=== PATIENT | male | born 1955 | race Caucasian/White ===

== ENCOUNTER 2021-06-08 14:39 | Emergency (ER) | payer OTHER ==
[2021-06-08 16:19] LABS: CORONAVIRUS COVID-19 NAA NEGATIVE (NEGATIVE)
[2021-06-08] MEDS ORDERED: Sodium Chloride 0.9% 10 ML Syringe FLUSH PRN ×2 (16:42)
[2021-06-08] MEDS ORDERED: Lactated Ringers 1,000 ML IV ONE (16:46)
--- NOTE | 2021-06-08 16:49 | EDM.PDOC ---
<OfficerJas - Last Filed: 06/08/21 19:24> ED HPI GENERAL MEDICAL PROBLEM - General Chief Complaint: General Stated Complaint: SOB, LIGHT HEADED Time Seen by Provider: 06/08/21 16:29 Source of Information: Reports: Patient, RN Notes Reviewed History Limitations: Reports: No Limitations - History of Present Illness INITIAL COMMENTS - FREE TEXT/NARRATIVE: 66-year-old gentleman presents to the emergency department today complaint of shortness of breath, he has a known history of COPD normally uses 2 L of oxygen all the time he is been very good about not getting exposed to Covid he is unvaccinated. States over the last couple days increasing shortness of breath increasing weakness no fevers no chest pain no nausea vomiting. He currently has bilateral skin breakdown on his lower extremities and he is taking Keflex for antibiotic Lower Back Pain Score (Numeric/FACES): 4 - Related Data Allergies Allergy/AdvReac Type Severity Reaction Status Date / Time lorazepam [From Ativan] Allergy Respiratory Verified 06/08/21 15:19 Distress prednisone Allergy Cannot Verified 06/08/21 15:19 Remember Home Meds: Home Meds Acetaminophen [Tylenol Arthritis] 1 tab PO Q8H PRN 06/08/21 [History] Albuterol Sulfate [Albuterol Sulfate Hfa] 2 puff INH Q4H PRN 06/08/21 [History] Clotrimazole [Mycelex] 1 tab PO ASDIRECTED 06/08/21 [History] Digoxin 1 tab PO DAILY 06/08/21 [History] Fluticasone/Vilanterol [Breo Ellipta 100-25 MCG Inhalation Kit] 1 puff INH DAILY 06/08/21 [History] Gabapentin [Neurontin] 300 mg PO BID 06/08/21 [History] Magnesium Oxide 400 mg PO BIDMEALS 06/08/21 [History] Metoprolol Succinate 100 mg PO DAILY 06/08/21 [History] Pantoprazole Sodium [Protonix] 40 mg PO DAILY 06/08/21 [History] Potassium Chloride 1 tab PO BIDMEALS 06/08/21 [History] Potassium Chloride 40 meq PO DAILY 06/08/21 [History] Sildenafil Citrate [Viagra] 50 mg PO ASDIRECTED 06/08/21 [History] Spironolactone 50 mg PO DAILY 06/08/21 [History] Torsemide 2 tab PO PCDINNER 06/08/21 [History] Torsemide 3 tab PO DAILY 06/08/21 [History] Zolpidem Tartrate [Ambien] 10 mg PO BEDTIME PRN 06/08/21 [History] cephALEXin [Keflex] 500 mg PO BID 06/08/21 [History] guaiFENesin [Mucinex] 600 mg PO BID PRN 06/08/21 [History] metOLazone [Metolazone] 2.5 mg PO ASDIRECTED 06/08/21 [History] traZODone 50 mg PO BEDTIME 06/08/21 [History] Past Medical History Cardiovascular History: Reports: Heart Failure, Hypertension Respiratory History: Reports: COPD Gastrointestinal History: Reports: Other (See Below) Other Gastrointestinal History: liver cirrohsis Genitourinary History: Reports: Other (See Below) Other Genitourinary History: history of acute kidney failure Psychiatric History: Reports: Dementia Dermatologic History: Reports: Cellulitis - Past Surgical History Head Surgeries/Procedures: Reports: None Cardiovascular Surgical History: Reports: None Respiratory Surgical History: Reports: None GI Surgical History: Reports: Hernia, Abdominal Male Surgical History: Reports: None Social & Family History - Tobacco Use Tobacco Use Status *Q: Current Every Day Tobacco User Years of Tobacco use: 45 Packs/Tins Daily: 0.5 - Caffeine Use Caffeine Use: Reports: Soda - Recreational Drug Use Recreational Drug Use: No ED ROS GENERAL - Review of Systems Review Of Systems: See Below Constitutional: Reports: Weakness, Fatigue. Denies: Fever HEENT: Reports: No Symptoms Respiratory: Reports: Shortness of Breath, Cough, Sputum Cardiovascular: Reports: Dyspnea on Exertion GI/Abdominal: Reports: No Symptoms : Reports: No Symptoms ED EXAM, GENERAL - Physical Exam Exam: See Below Exam Limited By: No Limitations General Appearance: Alert, Mild Distress Respiratory/Chest: Decreased Breath Sounds, Rhonchi Cardiovascular: Regular Rate, Rhythm, No Murmur GI/Abdominal: Soft, Non-Tender Course - Re-Assessments/Exams Free Text/Narrative Re-Assessment/Exam: 06/08/21 19:25 Review of this gentleman's reveals that he is severely hyperkalemic potassium 8.9 other lab work WBC 16.9 consistent leukocytosis BUN 118 creatinine 2.8 consi stent with acute renal failure stage G4 lactic acid 3.2 calcium low at 10.2 consistent with hypocalcemia troponin normal at 0.024 BNP markedly elevated 30,600 digoxin normal range 1.7 Covid is negative. He started to have some membrane instability problems fluctuation in heart rate QRS did widen with the T wave. He is brought to the trauma bay resuscitation efforts given a wide variety of medications calcium gluconate did have a significant impact he is initially placed on a nonrebreather mask however after stabilization variety other medications albuterol Kayexalate PE are as well as glucose and insulin large dose of Lasix 80 mg. He has stabilized his breathing is now maintaining his oxygenation on nasal cannula heart rate is stable at 75 however these issues are temporizing he does need dialysis. I did make contact to several facilities and was unsuccessful trying to find a bed that provides dialysis. I have informed the family of this his is present she states if if things are not looking good she does not want any heroic measures done. Departure - Departure Disposition: DC/Tfer to Acute Hospital 02 Clinical Impression: Hyperkalemia, Low left ventricular ejection fraction, Other urethral stricture, male, meatal Acute renal failure Qualifiers: Acute renal failure type: unspecified Qualified Code(s): N17.9 - Acute kidney failure, unspecified Volume overload Qualifiers: Hypervolemia type: other Qualified Code(s): E87.79 - Other fluid overload - Discharge Information Referrals: PCP,None [Primary Care Provider] - Forms: ED Department Discharge <Desmond Lira - Last Filed: 06/09/21 00:42> ED CENTRAL LINE INSERTION - Central Line Insertion Central Line Indication: dialysis Site: internal jugular (R) Prep: Sterile Drapes, Betadine Lumen: double Gauge: other (19Fr) Local Anesthesia - Lidocaine (Xylocaine): 1% with EPI Local Anesthetic Volume: 3cc Ultrasound guided: Yes Guidewire and dilator removed intact: Yes Micropuncture kit used: No Complications: No Secured with suture: Yes Post placement confirmation: CXR, all ports aspirated, all ports flushed (with heparin) CXR post-procedure: no pneumothorax, no hemothorax Dressing applied: by provider Course - Vital Signs Last Recorded V/S: Last Vital Signs Temp 36.5 C 06/08/21 15:17 Pulse 49 L 06/08/21 23:31 Resp 14 06/08/21 23:31 BP 112/63 06/08/21 23:31 Pulse Ox 96 06/08/21 23:31 - Orders/Labs/Meds Orders: Active Orders 24 hr Category Date Time Status Blood Glucose Check, Bedside [RC] ONETIME Care 06/08/21 20:30 Active Peripheral IV Care [RC] . DIRECTED Care 06/08/21 16:44 Active RT Aerosol Therapy [RC] ASDIRECTED Care 06/08/21 18:20 Active Chest 2V [CR] Urgent Exams 06/08/21 16:42 Taken Dextrose 50% in Water Med 06/08/21 18:19 Active 50 ml IVPUSH ASDIRECTED PRN Glucagon,Human Recombinant [GlucaGen] Med 06/08/21 18:19 Active 1 mg IM ASDIRECTED PRN Sodium Chloride 0.9% [Saline Flush] Med 06/08/21 16:42 Active 10 ml FLUSH ASDIRECTED PRN Sodium Chloride 0.9% [Saline Flush] Med 06/08/21 16:42 Active 10 ml FLUSH ASDIRECTED PRN Isolation [COMM] Stat Oth 06/08/21 16:16 Ordered Peripheral IV Insertion Adult [OM.PC] Urgent Oth 06/08/21 16:42 Ordered EKG 12 Lead [EK] Stat Ther 06/08/21 18:18 Ordered Medication Orders Dextrose/Water (50% Dextrose In Water 50 Ml Syringe) 50 ml IVPUSH ASDIRECTED PRN PRN Reason: Hypoglycemia Glucagon (Glucagon,Human Recombinant 1 Mg Vial) 1 mg IM ASDIRECTED PRN PRN Reason: Hypoglycemia Sodium Chloride (Sodium Chloride 0.9% 10 Ml Syringe) 10 ml FLUSH ASDIRECTED PRN PRN Reason: Keep Vein Open Last Admin: 06/08/21 17:48 Dose: 10 ml Documented by: [id number] Sodium Chloride (Sodium Chloride 0.9% 10 Ml Syringe) 10 ml FLUSH ASDIRECTED PRN PRN Reason: Keep Vein Open Last Admin: 06/08/21 17:48 Dose: 10 ml Documented by: [id number] Labs: Laboratory Tests 06/08/21 06/08/21 06/08/21 Range/Units 16:17 16:42 17:38 WBC 16.9 H (4.5-11.0) K/uL RBC 4.57 (4.30-5.90) M/uL Hgb 12.4 (12.0-15.0) g/dL Hct 41.2 (40.0-54.0) % MCV 90 (80-98) fL MCH 27 (27-31) pg MCHC 30 L (32-36) % Plt Count 403 H (150-400) K/uL Neut % (Auto) 82.5 H (36-66) % Lymph % (Auto) 5.6 L (24-44) % Madison % (Auto) 10.7 H (2-6) % Eos % (Auto) 0.8 L (2-4) % Baso % (Auto) 0.4 (0-1) % Puncture Site ABG pH (7.350-7.450) ABG pCO2 (35.0-42.0) mmHg ABG pO2 (75.0-100.0) mmHg ABG HCO3 (22.0-26.0) mmol/L ABG Total CO2 (23.0-27.0) mmol/L ABG O2 Saturation (95.0-98.0) % ABG O2 Content (15.0-23.0) %vol ABG Base Excess mm/L ABG Hemoglobin (13.5-18.0) g/dL ABG Oxyhemoglobin % ABG Carboxyhemoglobin (0.0-1.6) % ABG Methemoglobin % Jose Test O2 Delivery Device Sodium 132 L (140-148) mmol/L Potassium 8.9 H* (3.6-5.2) mmol/L Chloride 97 L (100-108) mmol/L Carbon Dioxide 22 (21-32) mmol/L Anion Gap 21.9 H (5.0-14.0) mmol/L BUN 118 H* (7-18) mg/dL Creatinine 2.8 H (0.8-1.3) mg/dL Est Cr Clr Drug Dosing 24.92 mL/min Estimated GFR (MDRD) 23 L (>60) Glucose 91 (74-106) mg/dL POC Glucose (74-106) MG/DL Lactic Acid (0.4-2.0) mmol/L Calcium 10.2 H (8.5-10.1) mg/dL Total Bilirubin 0.9 (0.2-1.0) mg/dL AST 26 (15-37) U/L ALT 17 (12-78) U/L Alkaline Phosphatase 345 H (46-116) U/L Troponin I 0.024 (0.000-0.056) ng/mL NT-Pro-B Natriuret Pep (5-125) pg/mL Total Protein 8.7 H (6.4-8.2) g/dL Albumin 3.3 L (3.4-5.0) g/dL Globulin 5.4 H (2.3-3.5) g/dL Albumin/Globulin Ratio 0.6 L (1.2-2.2) Procalcitonin ng/mL Digoxin (0.90-2.00) ng/mL Influenza Type A RNA Negative (NEGATIVE) RSV RNA (INAAT) Negative (NEGATIVE) Influenza Type B RNA Negative (NEGATIVE) SARS-CoV-2 RNA (ZORA) Negative (NEGATIVE) 06/08/21 06/08/21 06/08/21 Range/Units 17:38 17:38 17:38 WBC (4.5-11.0) K/uL RBC (4.30-5.90) M/uL Hgb (12.0-15.0) g/dL Hct (40.0-54.0) % MCV (80-98) fL MCH (27-31) pg MCHC (32-36) % Plt Count (150-400) K/uL Neut % (Auto) (36-66) % Lymph % (Auto) (24-44) % Madison % (Auto) (2-6) % Eos % (Auto) (2-4) % Baso % (Auto) (0-1) % Puncture Site ABG pH (7.350-7.450) ABG pCO2 (35.0-42.0) mmHg ABG pO2 (75.0-100.0) mmHg ABG HCO3 (22.0-26.0) mmol/L ABG Total CO2 (23.0-27.0) mmol/L ABG O2 Saturation (95.0-98.0) % ABG O2 Content (15.0-23.0) %vol ABG Base Excess mm/L ABG Hemoglobin (13.5-18.0) g/dL ABG Oxyhemoglobin % ABG Carboxyhemoglobin (0.0-1.6) % ABG Methemoglobin % Jose Test O2 Delivery Device Sodium (140-148) mmol/L Potassium (3.6-5.2) mmol/L Chloride (100-108) mmol/L Carbon Dioxide (21-32) mmol/L Anion Gap (5.0-14.0) mmol/L BUN (7-18) mg/dL Creatinine (0.8-1.3) mg/dL Est Cr Clr Drug Dosing mL/min Estimated GFR (MDRD) (>60) Glucose (74-106) mg/dL POC Glucose (74-106) MG/DL Lactic Acid 3.2 H (0.4-2.0) mmol/L Calcium (8.5-10.1) mg/dL Total Bilirubin (0.2-1.0) mg/dL AST (15-37) U/L ALT (12-78) U/L Alkaline Phosphatase (46-116) U/L Troponin I (0.000-0.056) ng/mL NT-Pro-B Natriuret Pep 75276 H (5-125) pg/mL Total Protein (6.4-8.2) g/dL Albumin (3.4-5.0) g/dL Globulin (2.3-3.5) g/dL Albumin/Globulin Ratio (1.2-2.2) Procalcitonin ng/mL Digoxin 1.70 (0.90-2.00) ng/mL Influenza Type A RNA (NEGATIVE) RSV RNA (INAAT) (NEGATIVE) Influenza Type B RNA (NEGATIVE) SARS-CoV-2 RNA (ZORA) (NEGATIVE) 06/08/21 06/08/21 06/08/21 Range/Units 17:38 20:30 20:30 WBC (4.5-11.0) K/uL RBC (4.30-5.90) M/uL Hgb (12.0-15.0) g/dL Hct (40.0-54.0) % MCV (80-98) fL MCH (27-31) pg MCHC (32-36) % Plt Count (150-400) K/uL Neut % (Auto) (36-66) % Lymph % (Auto) (24-44) % Madison % (Auto) (2-6) % Eos % (Auto) (2-4) % Baso % (Auto) (0-1) % Puncture Site Right radial ABG pH 7.226 L (7.350-7.450) ABG pCO2 50.1 H (35.0-42.0) mmHg ABG pO2 64.1 L (75.0-100.0) mmHg ABG HCO3 20.0 L (22.0-26.0) mmol/L ABG Total CO2 18.9 L (23.0-27.0) mmol/L ABG O2 Saturation 88.0 L (95.0-98.0) % ABG O2 Content 15.0 (15.0-23.0) %vol ABG Base Excess -7.3 mm/L ABG Hemoglobin 12.3 L (13.5-18.0) g/dL ABG Oxyhemoglobin 86.8 % ABG Carboxyhemoglobin 1.1 (0.0-1.6) % ABG Methemoglobin 0.3 % Jose Test Passd O2 Delivery Device Non rebr mask Sodium (140-148) mmol/L Potassium 8.0 H* (3.6-5.2) mmol/L Chloride (100-108) mmol/L Carbon Dioxide (21-32) mmol/L Anion Gap (5.0-14.0) mmol/L BUN (7-18) mg/dL Creatinine (0.8-1.3) mg/dL Est Cr Clr Drug Dosing mL/min Estimated GFR (MDRD) (>60) Glucose (74-106) mg/dL POC Glucose (74-106) MG/DL Lactic Acid (0.4-2.0) mmol/L Calcium (8.5-10.1) mg/dL Total Bilirubin (0.2-1.0) mg/dL AST (15-37) U/L ALT (12-78) U/L Alkaline Phosphatase (46-116) U/L Troponin I (0.000-0.056) ng/mL NT-Pro-B Natriuret Pep (5-125) pg/mL Total Protein (6.4-8.2) g/dL Albumin (3.4-5.0) g/dL Globulin (2.3-3.5) g/dL Albumin/Globulin Ratio (1.2-2.2) Procalcitonin 0.98 ng/mL Digoxin (0.90-2.00) ng/mL Influenza Type A RNA (NEGATIVE) RSV RNA (INAAT) (NEGATIVE) Influenza Type B RNA (NEGATIVE) SARS-CoV-2 RNA (ZORA) (NEGATIVE) 06/08/21 Range/Units 22:30 WBC (4.5-11.0) K/uL RBC (4.30-5.90) M/uL Hgb (12.0-15.0) g/dL Hct (40.0-54.0) % MCV (80-98) fL MCH (27-31) pg MCHC (32-36) % Plt Count (150-400) K/uL Neut % (Auto) (36-66) % Lymph % (Auto) (24-44) % Madison % (Auto) (2-6) % Eos % (Auto) (2-4) % Baso % (Auto) (0-1) % Puncture Site ABG pH (7.350-7.450) ABG pCO2 (35.0-42.0) mmHg ABG pO2 (75.0-100.0) mmHg ABG HCO3 (22.0-26.0) mmol/L ABG Total CO2 (23.0-27.0) mmol/L ABG O2 Saturation (95.0-98.0) % ABG O2 Content (15.0-23.0) %vol ABG Base Excess mm/L ABG Hemoglobin (13.5-18.0) g/dL ABG Oxyhemoglobin % ABG Carboxyhemoglobin (0.0-1.6) % ABG Methemoglobin % Jose Test O2 Delivery Device Sodium (140-148) mmol/L Potassium (3.6-5.2) mmol/L Chloride (100-108) mmol/L Carbon Dioxide (21-32) mmol/L Anion Gap (5.0-14.0) mmol/L BUN (7-18) mg/dL Creatinine (0.8-1.3) mg/dL Est Cr Clr Drug Dosing mL/min Estimated GFR (MDRD) (>60) Glucose (74-106) mg/dL POC Glucose 103 (74-106) MG/DL Lactic Acid (0.4-2.0) mmol/L Calcium (8.5-10.1) mg/dL Total Bilirubin (0.2-1.0) mg/dL AST (15-37) U/L ALT (12-78) U/L Alkaline Phosphatase (46-116) U/L Troponin I (0.000-0.056) ng/mL NT-Pro-B Natriuret Pep (5-125) pg/mL Total Protein (6.4-8.2) g/dL Albumin (3.4-5.0) g/dL Globulin (2.3-3.5) g/dL Albumin/Globulin Ratio (1.2-2.2) Procalcitonin ng/mL Digoxin (0.90-2.00) ng/mL Influenza Type A RNA (NEGATIVE) RSV RNA (INAAT) (NEGATIVE) Influenza Type B RNA (NEGATIVE) SARS-CoV-2 RNA (ZORA) (NEGATIVE) Meds: Medications Generic Name Dose Route Start Last Admin Trade Name Elina PRN Reason Stop Dose Admin Dextrose/Water 50 ml 06/08/21 18:19 50% Dextrose In Water 50 Ml Syringe IVPUSH ASDIRECTED PRN Hypoglycemia Glucagon 1 mg 06/08/21 18:19 Glucagon,Human Recombinant 1 Mg Vial IM ASDIRECTED PRN Hypoglycemia Sodium Chloride 10 ml 06/08/21 16:42 06/08/21 17:48 Sodium Chloride 0.9% 10 Ml Syringe FLUSH 10 ml ASDIRECTED PRN Administration Keep Vein Open Sodium Chloride 10 ml 06/08/21 16:42 06/08/21 17:48 Sodium Chloride 0.9% 10 Ml Syringe FLUSH 10 ml ASDIRECTED PRN Administration Keep Vein Open Discontinued Medications Generic Name Dose Route Start Last Admin Trade Name Elina PRN Reason Stop Dose Admin Albuterol 2.5 mg 06/08/21 18:19 06/08/21 18:55 Albuterol 0.083% 2.5 Mg/3 Ml Neb Soln NEB 06/08/21 18:20 2.5 mg ONETIME ONE Administration Calcium Gluconate 1.5 gm 06/08/21 18:19 06/08/21 18:53 Calcium Gluconate 10% 1 Gm/10 Ml Sdv IVPUSH 06/08/21 18:20 1.5 gm ONETIME ONE Administration Calcium Gluconate 2 gm 06/08/21 20:06 06/08/21 20:48 Calcium Gluconate 10% 1 Gm/10 Ml Sdv IVPUSH 06/08/21 20:07 2 gm ONETIME ONE Administration Calcium Gluconate 2 gm 06/08/21 22:48 06/08/21 23:23 Calcium Gluconate 10% 1 Gm/10 Ml Sdv IVPUSH 06/08/21 22:49 2 gm ONETIME ONE Administration Calcium Gluconate Confirm 06/08/21 22:48 06/08/21 23:23 Calcium Gluconate 10% 1 Gm/10 Ml Sdv Administered 06/08/21 22:49 Not Given Dose 2 gm .ROUTE .STK-MED ONE Dextrose/Water 50 ml 06/08/21 18:19 06/08/21 18:57 50% Dextrose In Water 50 Ml Syringe IVPUSH 06/08/21 18:20 50 ml ONETIME ONE Administration Furosemide 80 mg 06/08/21 18:19 06/08/21 19:01 Furosemide 40 Mg/4 Ml Vial IVPUSH 06/08/21 18:20 80 mg ONETIME ONE Administration Furosemide 100 mg 06/08/21 23:35 Furosemide 100 Mg/10 Ml Sdv IVPUSH 06/08/21 23:36 NOW ONE Lactated Ringer's 1,000 mls @ 999 mls/hr 06/08/21 16:46 06/08/21 17:48 Ringers, Lactated IV 06/08/21 17:46 999 mls/hr BOLUS ONE Administration Insulin Human Regular 10 unit 06/08/21 18:19 06/08/21 18:59 Insulin Regular, Human 100 Units/Ml 3 Ml Vial SUBCUT 06/08/21 18:20 10 units ONETIME ONE Administration Morphine Sulfate 4 mg 06/08/21 20:47 06/08/21 21:01 Morphine 4 Mg/Ml Syringe IVPUSH 06/08/21 20:48 4 mg ONETIME ONE Administration Nitroglycerin 0.4 mg 06/08/21 18:42 06/08/21 19:32 Nitroglycerin 0.4 Mg Tab.Sl SL 06/08/21 18:43 Not Given ONETIME ONE Sodium Polystyrene Sulfonate 15 gm 06/08/21 18:19 06/08/21 19:32 Sodium Polystyrene Sulfonate 15 Gm/60 Ml Susp 60 Ml Bot PO 06/08/21 18:20 Not Given ONETIME ONE Sodium Polystyrene Sulfonate 45 gm 06/08/21 18:35 06/08/21 19:32 Sodium Polystyrene Sulfonate 15 Gm/60 Ml Susp 60 Ml Bot PO 06/08/21 18:36 Not Given NOW ONE Sodium Polystyrene Sulfonate 45 gm 06/08/21 18:35 06/08/21 19:14 Sodium Polystyrene Sulfonate 15 Gm/60 Ml Susp 60 Ml Bot RECTAL 06/08/21 18:36 45 gm NOW ONE Administration - Re-Assessments/Exams Free Text/Narrative Re-Assessment/Exam: 06/08/21 22:17 been having an little improvements with his potassium now at 8.0. We continue with the Kayexalate and calcium gluconate. This vitals remained stable with the pulse rate of 46 blood pressure 108/75 and respiratory rate of 14 satting at 96%. I have been trying to find facility for transfer the can do dialysis on the patient as he is volume overloaded due to acute renal failure and has significant hyperkalemia. Family me to pursue more aggressive care at this time despite the earlier conversation. I discussed the case with [facility], [facility], [facility], [facility], [facility] in [place], and [facility] in [place] and there is no availability for any of these facilities at this time for the patient. I did reach out to [facility] in [place] who feels that they can probably manage the patient with dialysis and [facility] if he remains vitally stable. 06/09/21 00:00 I discussed the case with Dr. Todd, hospitalist at [facility] who accepts the patient in transfer. 06/09/21 00:41 the dialysis catheter has been placed in the right IJ using ultrasound guidance with the assistance of Dr. Sherwood. The catheter has been secured with 3-0 Ethilon. X-ray of the chest demonstrates that the tip of the c atheter sits right in the midst of the right atrium so will likely need to be pulled back before use. The catheter has been heparinized and both ports and should be ready to run. I updated Dr. Todd on this and the patient is ready for transfer by air ambulance to [facility] in [place] at this time. Departure - Departure Time of Disposition: 00:39 Condition: Critical Critical Care Note - Critical Care Note Total Time (mins): 300 Comments: 300 minutes critical care time excluding procedures Sepsis Event Note (ED) - Focused Exam Vital Signs: Vital Signs Temp Pulse Resp BP Pulse Ox 06/08/21 23:31 49 L 14 112/63 96 06/08/21 22:07 45 L 15 108/75 96 06/08/21 21:18 55 L 15 108/67 96 06/08/21 20:53 67 28 H 121/39 L 96 06/08/21 19:56 45 L 19 110/61 97 06/08/21 19:37 77 19 119/71 97 06/08/21 19:23 81 116/71 06/08/21 17:20 45 L 93/60 94 L 06/08/21 16:24 42 L 93/66 93 L 06/08/21 15:17 36.5 C 70 16 109/83 92 L 06/08/21 15:16 92 L 06/08/21 15:14 36.5 C 70 16 109/83 82 L S/P Cath Insertion - Suprapubic Catheter Insertion S/P Cath Indication: Patient is in acute renal failure and has urinary obstruction with a stricture at the meatus necessitating the placement of a suprapubic catheter emergently for hyperkalemia and acute renal failure. Consent Obtained: Reports: Other Prep: Reports: Sterile Drapes, Alcohol Local Anesthesia - Lidocaine (Xylocaine): Reports: 1% with EPI Local Anesthetic Volume: 2cc Urine Description: Reports: Clear Comments:: A suprapubic catheter was placed using the Bard suprapubic introducer Fritz catheter set. The suprapubic was placed using ultrasound guidance visualizing the tip of the needle going into the bladder. The catheter was then introduced and urine output was noted to be clear without blood.
[2021-06-08] MEDS ORDERED: Furosemide 40 MG/4 ML VIAL IVPUSH ONE (18:19)
[2021-06-08] MEDS ORDERED: 50% Dextrose in Water 50 ML Syringe IVPUSH PRN (18:19)
[2021-06-08] MEDS ORDERED: 50% Dextrose in Water 50 ML Syringe IVPUSH ONE (18:19)
[2021-06-08] MEDS ORDERED: Albuterol 0.083% 2.5 MG/3 ML Neb Soln NEB ONE (18:19)
[2021-06-08] MEDS ORDERED: Sodium Polystyrene Sulfonate 15 GM/60 ML Susp 60 ML Bot PO ONE ×2 (18:19→18:35)
[2021-06-08] MEDS ORDERED: Glucagon,Human Recombinant 1 MG Vial IM PRN (18:19)
[2021-06-08] MEDS ORDERED: Insulin Regular, Human 100 Units/ML 3 ML Vial SUBCUT ONE (18:19)
[2021-06-08] MEDS ORDERED: Calcium Gluconate 10% 1 GM/10 ML SDV IVPUSH ONE ×3 (18:19→22:48)
[2021-06-08] MEDS ORDERED: Sodium Polystyrene Sulfonate 15 GM/60 ML Susp 60 ML Bot RECTAL ONE (18:35)
[2021-06-08] MEDS ORDERED: Nitroglycerin 0.4 MG Tab.SL SL ONE (18:42)
[2021-06-08] MEDS ORDERED: Morphine 4 MG/ML Syringe IVPUSH ONE (20:47)
[2021-06-08] MEDS ORDERED: Calcium Gluconate 10% 1 GM/10 ML SDV ONE (22:48)
[2021-06-08] MEDS ORDERED: Furosemide 100 MG/10 ML SDV IVPUSH ONE (23:35)
[2021-06-09] MEDS ORDERED: Sodium Bicarbonate 100 MEQ in Dextrose 5% in Water 100 ML IV ONE ×2 (00:30)
[2021-06-09] MEDS ORDERED: DEXTROSE 5% IV ONE ×2 (00:44)
[2021-06-09] MEDS ORDERED: SODIUM BICARBONATE IV ONE ×2 (00:44)
[2021-06-09] MEDS ORDERED: WATER IV ONE ×2 (00:44)
--- NOTE | 2021-06-11 09:32 | CR ---
CHEST: 2 view CLINICAL HISTORY:SOB COMPARISON:None FINDINGS: There is less than optimal inspiration despite repeated effort. Heart is enlarged. Pulmonary vascularity is partially obscured and may be cephalized. There is diffuse interstitial prominence. This is exaggerated by poor inspiratory level. Lung markings are diffusely prominent. This may represent some pulmonary edema or pneumonitis. There is patchy infiltrate or atelectasis seen in the lateral image in one or both of the lower lobes. Impression: Very limited chest x-ray with poor inspiratory level Cardiomegaly Pulmonary vascularity and lung markings are prominent which may represent CHF or fluid overload. A diffuse pneumonitis is not excluded Patchy airspace disease in one or both lower lobes as seen on the lateral image
--- NOTE | 2021-06-11 09:37 | CR ---
CHEST: Portable 06/09/2021 at 12:37 AM CLINICAL HISTORY:Central line placement COMPARISON:06/08/2021 FINDINGS: There is been placement of a right jugular double-lumen catheter. The tip is at the superior vena cava atrial junction. The heart is enlarged. Lung markings are exaggerated by poor inspiratory level. Impression: Limited portable study Double-lumen catheter appears in good position Cardiomegaly Diffuse bilateral infiltrates versus edema
== END 2021-06-09 01:14 ==
LOC: JP.ED 14:39 → EDBD 14:39 → JP.ED 06-09 01:14
DX: N17.9 Acute kidney failure, unspecified (principal); I11.0 Hypertensive heart disease with heart failure; I50.9 Heart failure, unspecified; N35.819 Other urethral stricture, male, unspecified site; E87.79 Other fluid overload; E87.5 Hyperkalemia; J44.9 Chronic obstructive pulmonary disease, unspecified; Z88.5 Allergy status to narcotic agent; Z88.8 Allergy status to other drugs, medicaments and biological substances; Z72.0 Tobacco use; Z79.899 Other long term (current) drug therapy; Z20.822 Contact with and (suspected) exposure to COVID-19
CPT/HCPCS: 0241U; 36415; 36556; 51102; 71045; 71046; 80053; 80162; 82803; 83605; 83880; 84132; 84145; 84484; 85025; 93005; 94640; 96365; 96375; 96376; 99291; 99292; A9270; J0610; J1642; J1815; J1940; J2270; J7120; C1750; C2627; J3490